=== PATIENT | female | born 1980 ===

== ENCOUNTER 2021-11-12 21:32 | Emergency (ER) | payer MEDICAID ==
[~2021-11-12] VITALS: Ht 160 cm; Wt 63.0 kg
[2021-11-13 00:23] LABS: BASOPHILS % 0.7 % (0.0-2.0); EOSINOPHILS % 2.4 % (0.0-5.0); HEMATOCRIT. 35.2 % (36.0-48.0); HEMOGLOBIN. 11.9 g/dL (12.0-16.0); MEAN CORPUSCULAR HEMOGLOBIN 29.8 pg (28.0-32.0); MEAN CORPUSCULAR VOLUME 88.4 fL (81.0-99.0); MEAN PLATELET VOLUME 9.1 fl (7.4-10.4); NEUTROPHILS % 61.9 % (40.0-76.0); PLATELET 277 x1000/uL (130-400); RED BLOOD CELL COUNT 3.99 mill/uL (4.2-5.4); RED CELL DISTRIBUTION WIDTH 12.8 % (11.6-14.6)
[2021-11-13 00:33] LABS: CHLORIDE 106 mEq/L (98-107)
[2021-11-13 00:33] LABS: CLARITY URINE TURBID (CLEAR); COLOR URINE YELLOW (YELLOW); KETONES URINE TRACE (NEGATIVE); LEUKOCYTE ESTERASE URINE 1+ (NEGATIVE); NITRITE URINE NEGATIVE (NEGATIVE); OCCULT BLOOD URINE NEGATIVE (NEGATIVE); PROTEIN URINE NEGATIVE (NEGATIVE); SPECIFIC GRAVITY URINE 1.024 (1.005-1.030)
[2021-11-13 00:37] LABS: ETHANOL BLOOD < 10 mg/dL
[2021-11-13 00:41] LABS: *AMPHETAMINES SCREEN URINE NEGATIVE (NEGATIVE); CANNABINOID URINE SCREEN NEGATIVE (NEGATIVE); METHADONE URINE SCREEN NEGATIVE (NEGATIVE); OPIATES URINE SCREEN NEGATIVE (NEGATIVE); PHENCYCLIDINE URINE SCREEN NEGATIVE (NEGATIVE)
[2021-11-13 00:42] LABS: *BARBITURATES SCREEN URINE NEGATIVE (NEGATIVE); *BENZODIAZEPINES SCREEN URINE NEGATIVE (NEGATIVE); *COCAINE SCREEN URINE NEGATIVE (NEGATIVE)
[2021-11-13] MEDS ORDERED: CEPHALEXIN 250MG CAPSULE PO NR (01:15)
[2021-11-13 03:26] VITALS: BP 127/93
== END 2021-11-13 04:10 | disposition home or self-care (01) ==
LOC: ER 21:32
DX: R10.11 Right upper quadrant pain (principal); E11.9 Type 2 diabetes mellitus without complications; Z90.49 Acquired absence of other specified parts of digestive tract
CPT/HCPCS: 36415; 74176; 76700; 80053; 80305; 80320; 81003; 81025; 83605; 85025; 93005; 99285; G0480

== ENCOUNTER 2024-04-23 09:16 | Emergency (ER) | payer MEDICAID, OTHER ==
[~2024-04-23] VITALS: Ht 160 cm; Wt 63.6 kg
[2024-04-23 09:23] VITALS: BP 127/79; PULSE 77; RESP 18; TEMP 98.5; O2SAT 100
[2024-04-23 10:05] LABS: BASOPHILS % 0.9 % (0.0-2.0); EOSINOPHILS % 3.4 % (0.0-5.0); HEMATOCRIT. 35.1 % (36.0-48.0); HEMOGLOBIN. 11.8 g/dL (12.0-16.0); LYMPHOCYTES % 25.6 % (20.0-50.0); MEAN CORPUSCULAR HEMOGLOBIN 30.3 pg (28.0-32.0); MEAN CORPUSCULAR HGB CONC 33.6 g/dL (31.0-37.0); MEAN CORPUSCULAR VOLUME 90.2 fL (81.0-99.0); MEAN PLATELET VOLUME 9.4 fl (7.4-10.4); MONOCYTES % 6.2 % (2.0-8.0); NEUTROPHILS % 63.9 % (40.0-76.0); PLATELET 260 x1000/uL (130-400); RED BLOOD CELL COUNT 3.89 mill/uL (4.2-5.4); RED CELL DISTRIBUTION WIDTH 13.3 % (11.6-14.6); WHITE BLOOD COUNT 5.9 x1000/uL (4.5-11.0)
[2024-04-23 10:18] LABS: HCG SCREEN NEGATIVE
[2024-04-23 10:19] LABS: CHLORIDE 107 mEq/L (98-107); SODIUM 135 mEq/L (136-145)
[2024-04-23 10:20] LABS: CARBON DIOXIDE 28 mEq/L (21-32)
[2024-04-23 10:25] LABS: CREATININE 0.7 mg/dL (0.6-1.0); GLUCOSE 243 mg/dL (70-105)
[2024-04-23 10:26] LABS: UREA NITROGEN BLOOD 9 mg/dL (9-23)
[2024-04-23 10:49] LABS: TROPONIN I HIGH SENSITIVITY < 4 ng/L (3.0-34)
[2024-04-23] MEDS ORDERED: BENZ100C86 MT (11:00)
[2024-04-23] MEDS ORDERED: IBUP-2028 MT (11:00)
[2024-04-23] MEDS ORDERED: AZIT250T12 MT (11:00)
== END 2024-04-23 11:24 | disposition home or self-care (01) ==
LOC: ER 09:16
DX: R05.9 Cough, unspecified (principal); E11.9 Type 2 diabetes mellitus without complications; Z90.49 Acquired absence of other specified parts of digestive tract
CPT/HCPCS: 36415; 71045; 80048; 84484; 84703; 85025; 93005; 99285